=== PATIENT | male | born 1930 | race Caucasian/White ===

== ENCOUNTER 2016-09-20 06:24 | Day surgery (SDC) | payer MEDICARE, OTHER ==
--- NOTE | 2016-09-16 15:31 | PCM.ANEPRE ---
Anesthesia Pre-Op Review Reason for Review: [place] 09/29 COMORBIDITIES Anesthesia Recommendations: Proceed with Procedure Additional Comments 86 yo M with chronic renal failure scheduled for lap peritoneal dialysis catheter placement. Hx of IDDM, partial nephrectomy. Stop Bang 4. Echo shows EF 60-65%, no significant valvular disease. Patient's most recent potassium is 5.9, he has not yet started dialysis. Proceed, will check DOS basic metabolic panel. Jeff Serrano Chart Reviewed by: Russel Merritt MD September 16, 2016 15:31
[2016-09-20] VITALS (9 sets, daily range): BP systolic 127–170; BP diastolic 48–85; PULSE 57–71; RESP 13–20; O2SAT 95–100
[~2016-09-20] VITALS: Ht 182.9 cm; Wt 106.1 kg
[~2016-09-20 06:24] MED LIST: 0.9% Sodium Chloride 500 ML IV ONE; ACET-2605 PO; ALBU8.5H2 INHALATION; AMLO10TA3 PO; ASCO500C6 PO; ASPI-973 PO; CHOL500050 PO; CeFAZolin Inj 2 GM in IV Premix 1 EACH IV ONE; DOCU250C2 PO; DOXA2TAB52 PO; FERR325C PO; FINA5TAB9 PO; FUR20 PO; GLIM1TAB PO; HYG25 PO; INSU100V7 SUBQ; KEN25CR EXT; KTC2C15 TP; LOSA25TA21 PO; METR45GE TOP; PRAV40TA PO; SEVE800T7 PO; [UNRECOGNIZED DRUG - OTHER] TOPICAL; levothyroxine PO
[2016-09-20] MEDS ORDERED: Glycopyrrolate 0.2 MG/ML 1mL Inj ONE ×2 (06:25)
[2016-09-20] MEDS ORDERED: Propofol 10,000 mCg/mL 20 mL Inj ONE (06:25)
[2016-09-20] MEDS ORDERED: fentaNYL-PF 50 mCg/mL 2 mL Inj ONE (06:25)
[2016-09-20] MEDS ORDERED: Ondansetron 2 mg/mL 2 mL Inj ONE (06:25)
[2016-09-20] MEDS ORDERED: Neostigmine 1 mg/mL 10 mL Inj ONE (06:25)
[2016-09-20] MEDS ORDERED: Rocuronium 10 mg/mL 5 mL Inj ONE (06:25)
--- NOTE | 2016-09-20 07:49 | PCM.HPANE ---
Patient Data Surgeon Admitting Provider: Attending Provider:Daryn Henley MD Primary Care Physician:Siomara Kinsey MD Other Provider:Daphnie Aguilar Anesthesia Reason for Visit Chronic Renal Failure Stage 4 Ht/WT & BMI Height (Feet): 6 Height (Inches): 0 Weight (Kilograms): 106.14 Body Mass Index 31.00 Allergies Coded Allergies: No Known Allergies (Unverified , 09/16/16) Past Anesthesia History Anesthesia History: Denies:: Anesthesia Reactions, Malignant Hyperthermia Diabetes History Hx Diabetes?: Yes Type of Diabetes: Type II Glycemic Control: Insulin & Oral Medication Current Bedside Blood Glucose: 77 MRSA MRSA: No Medications Blood Thinner: Aspirin Hypertension Medication: Yes (AMLODIPINE,LASIX,LOSARTAN,CHLORTHALIDONE, DOXAZOSIN) Home Meds Incl Beta [place]: No Reported Medications Cholecalciferol (Vitamin D3) (Vitamin D)50,000 Unit Mywnjqo69,000 Unit PO Q 2 WEEKS 09/16/16 Doxazosin (Cardura)2 Mg Tablet2 Mg PO HS Ref 0 09/16/16 Chlorthalidone 25 Mg Quvpes54 Mg PO DAILY #30 TABLET 09/16/16 Sevelamer Carbonate (Renvela)800 Mg Tablet1,600 Mg PO TIDWM 90 Days 01/28/16 [levothyroxine] No Conflict Wszmb760 Mcg PO DAILY 01/28/16 Acetaminophen/Diphenhydramine (Tylenol Pm Ex-Strength Caplet)500 Mg-25 Mg Tablet1 Each PO Q6H PRN For Pain 01/26/16 Triamcinolone Acet (Triamcinolone Acetonide Cream)1 Applic/0.25 Gm Cr1 Applic EXT BID #60 GM Ref 0 01/26/16 Pravastatin 40 Mg Wcrzvo16 Mg PO DAILY Ref 0 01/26/16 [neutrogena shampoo] No Conflict Check1 Dose TOPICAL DAILY 01/26/16 Metronidazole (Metronidazole Gel)1 Applic/0.25 Gm Gel1 Applic TOP HS #45 GM Ref 0 01/26/16 Losartan Potassium 25 Mg Irrjfc57 Mg PO DAILY 01/26/16 Ketoconazole 15 Gm Cream..g.15 Gm TP BID PRN fungal infection 01/26/16 Ferrous Sulfate (Iron)325 Mg Capsule.er325 Mg PO DAILY 01/26/16 Insulin Glargine (Lantus U100 Insulin Vial)100 Unit/Ml Vial30 Unit SUBQ HS #1 VIAL Ref 0 01/26/16 Glimepiride 1 Mg Tablet0.5 Mg PO BID #30 TABLET Ref 0 01/26/16 Furosemide 20 Mg Tab20 Mg PO DAILY 30 Days Ref 0 01/26/16 Finasteride 5 Mg Tablet5 Mg PO DAILY 30 Days Ref 0 01/26/16 Doxazosin (Cardura)2 Mg Tablet2 Mg PO HS Ref 0 01/26/16 Docusate Sodium 250 Mg Akstadr296 Mg PO DAILY PRN For Constipation Ref 0 01/26/16 Aspirin 81 Mg Mkhmln18 Mg PO DAILY Ref 0 01/26/16 Ascorbic Acid (Vitamin C)500 Mg Capsule.er1,000 Mg PO DAILY 01/26/16 Amlodipine 10 Mg Smqwrl96 Mg PO DAILY Ref 0 01/26/16 Albuterol HFA (Proair HFA)8.5 Gm Hfa.aer.ad2 Puffs INHALATION Q4H #1 INHALER 01/26/16 Discontinued Reported Medications Hydrochlorothiazide 25 Mg Egdgfo51 Mg PO DAILY 30 Days Ref 0 01/28/16 Tramadol 50 Mg Mrofze88 Mg PO HS PRN For Pain Ref 0 01/26/16 Minocycline 50 Mg Kqzdqy90 Mg PO BID Ref 0 01/26/16 Multivitamin (Once Daily)1 Each Tablet1 Each PO DAILY 01/26/16 [free style strips] No Conflict Check1 Bid 01/26/16 Ergocalciferol (Vitamin D2) (Drisdol)50,000 Unit Nayhwpa59,000 Unit PO DIRECTED twice a week 01/26/16 History History of ENT Problems?: Yes HEENT History: Positive for:: Sinus Problem (ALLERGIC RHINITIS) Denture Type: None Teeth Condition: Within Normal Limits Hx of Heart Problems?: Yes Cardiovascular History: Positive for:: Hypertension (HYPERLIPIDEMIA) Thrombophlebitis (HX OF"BLOOD CLOTS") Denies:: Heart Murmur (ECHO 11/2015 EF 60-65%) Other Cardiac History: HX OF ANEMIA OF CHRONIC DISEASE 09/13/ H/H-9.2/29.6 C/OF BRUISING EASILY Hx of Respiratory Problem?: Yes Respiratory History: Positive for:: Asthma (REACTIVE AIRWAY DISEASE) Use of Inhalers / NEBS Denies:: Use of C-PAP Machine (SNORES) Hx Neurologic Problems?: Yes Other Neurological Pertinent: HX DIABETIC NEUROPATHY Hx of GI Problems?: No Hx of Problems?: Yes Genitourinary History: Denies:: HX of Hemodialysis (CHRONIC (STAGE 4) KIDNEY DISEASE/DIALYSIS ACCESS=CURRENT PROBLEM) Other Pertinent History: S/P LT PARTIAL NEPHRECTOMY Male Hx: Denies:: Prostate Problems Scrotal Mass Testicular Surgery Skin History: Positive for:: History Skin Disorders? 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,TKA'S X2) Osteoarthritis Hx Surgeries?: Yes (LT PARTIAL NEPHRECTOMY,JULES W/ REVISION, TKA'S X2) Hx Any Other Health Problems?: Yes Other History: Positive for:: Hospitalization Thyroid Disease Denies:: Cancer Endocrine Disease (C/OF COLD INTOLERANCE) Hx Diabetes: YesBedside Blood Glucose: 77 Hx Alcohol Use: Yes (OCCAS)Have You Smoked inLast 12 mo: NoApprox How Many Cigarettes/day: 1 PPD Stop/Bang S-Snoring: Do You Snore Loudly: Yes T-Tired: feel tired, fatigued: Yes O-Obsered: Observed not breath: No P-Blood Pressure: treated: Yes B- Body Mass Index > 35 kg/m2: No A- Age over 50: Yes N- Neck Large Circumference: Yes G- Gender Male: Yes FRAN Total Score: 6 FRAN Risk Assessment: High Risk, =/>3 Yes Risk Assessment Category Category 1A: Patient has history of documented sleep apnea, and HAS NOT received any narcotic, sedative or anesthesia administration during this stay. Category 1B: Patient has history of documented sleep apnea, and HAS received any narcotic , sedative or anesthesia administration during this stay Category 2: Patient has SUSPECTED Obstructive Sleep Apnea, and HAS received any narcotic , sedative or anesthesia administration during this stay. Category 3: Patient has SUSPECTED Obstructive Sleep Apnea and HAS NOT received narcotic, sedative or anesthesia administration during this stay. Category 4: Outpatient in Procedural Areas with known sleep apnea or who screen positive for High Risk via the STOP/BANG questionnaire. Exam Exam Vital Signs Vital Signs Date Time Temp Pulse Resp B/P Pulse Ox O2 Delivery O2 Flow Rate FiO2 09/20/16 07:14 36.4 57 16 128/56 96 Room Air General Appearance: Alert, Oriented X3, Cooperative, No Acute Distress HEENT/AIRWAY: MP 2, Neck Movement Lungs: Clear to Auscultation, Normal Air Movement Heart: Exam Unremarkable, Regular Rate/Rhythm, No Murmurs/Rubs/Gallops Meds/Labs/Diagnostics Bedside Blood Glucose: 77 Labs Test 09/20/16 06:55 Sodium Level 143mEq/L (134-144) Potassium Level 5.1mEq/L (3.5-5.2) Chloride Level 109mEq/L (97-108) Carbon Dioxide Level 17mmol/L (18-29) Blood Urea Nitrogen 87mg/dL (8-27) Creatinine 4.07mg/dL (0.76-1.27) Estimat Glomerular Filtration Rate 15mL/min (>59) Glucose Level 77mg/dL (60-99) Calcium Level 10.0mg/dL (8.5-10.1) Plan Impression Patient chart reviewed, patient interviewed and anesthestic plan with risks, benefits, and alternatives discussed, and informed consent obtained. NPO per Anesth. Guidelines: Yes ASA Physical Status: ASA3 Severe Disease Anesthetic Plan: GA Bene/Risks/Altern/Consents: Yes HP Complete Prior to Induction: Yes Demetrio Perez MD September 20, 2016 07:49
[2016-09-20] MEDS ORDERED: Bupivacaine-MPF 0.25%/EPI 30 mL Inj INFILTRATE ONE (08:58)
[2016-09-20] MEDS ORDERED: Lactated Ringer's 500 ML IV PRN (09:18)
[2016-09-20] MEDS ORDERED: Lactated Ringer's 1,000 ML IV SCH (09:18)
[2016-09-20] MEDS ORDERED: EPHEDrine Sulfate 50 mg/mL Inj IVPUSH PRN (09:20)
[2016-09-20] MEDS ORDERED: Dexamethasone 4 mg/mL Inj IVPUSH PRN (09:20)
[2016-09-20] MEDS ORDERED: HYDROmorphone 1 mg/mL Inj IVPUSH PRN (09:20)
[2016-09-20] MEDS ORDERED: MetoCLOpramide 5 mg/mL 2 mL Inj IVPUSH PRN (09:20)
[2016-09-20] MEDS ORDERED: Ondansetron 2 mg/mL 2 mL Inj IVPUSH PRN (09:20)
[2016-09-20] MEDS ORDERED: Atropine 0.4 mg/mL Inj IVPUSH PRN (09:20)
[2016-09-20] MEDS ORDERED: fentaNYL-PF 50 mCg/mL 2 mL Inj IVPUSH PRN (09:20)
[2016-09-20] MEDS ORDERED: Phenylephrine 10,000 mCg/mL Inj IVPUSH PRN (09:20)
[2016-09-20] MEDS ORDERED: HYDROcodone-APAP 5-325 mg Tablet PO PRN (09:30)
--- NOTE | 2016-09-20 10:03 | OP ---
[address] [address] OPERATIVE REPORT PATIENT: QUITA WIN : 1930 MR#: [id number] ADMIT: 09/20/2016 JOB ID: [id number] DATE OF SURGERY: 09/20/2016 PREOPERATIVE DIAGNOSIS(ES): Chronic renal failure. POSTOPERATIVE DIAGNOSIS(ES): Chronic renal failure. PROCEDURE: 1. Diagnostic laparoscopy. 2. Laparoscopic placement of peritoneal dialysis catheter. SURGEON: Daryn Henley MD. ELECTROMECHANISMS DESIGN DRAFTER: Essie Negro PA-C. INDICATIONS: The patient is an 86-year-old man with chronic renal failure. He wants to do peritoneal dialysis. He has had a previous partial left nephrectomy through a left subcostal incision, but after discussing options with the patient, it was elected to proceed with diagnostic laparoscopy and then placement of a peritoneal dialysis catheter. FINDINGS: He did have adhesions tracking underneath his subcostal incision on the left, but they did not impair function of the catheter. The catheter had no restriction to inflow or outflow and was positioned into the center of the pelvis. There is no evidence of hernias. There is no evidence of malignancy. DESCRIPTION OF PROCEDURE: At the beginning and end of the operation, the SCOAP checklist was completed. A general endotracheal anesthetic was induced and using ChloraPrep, he was prepped and draped in the usual fashion. He had on pneumatic hose. He received intravenous antibiotics. All trocar sites were infiltrated with 0.25% bupivacaine with epinephrine. A left subcostal incision was made. The Veress needle was atraumatically placed into the abdominal cavity which was insufflated without restriction of flow. Using an optical port, a 5 mm port was established at the same site. There was a veil of omentum, but there was a clear space that I could pass the scope through. And then under direct visualization could visualize the rest of the abdominal cavity with results as stated above. A 5 mm port was placed in the left lateral mid abdomen. The position of the right upper quadrant incision, the internal location of the deep Jose cuff and then the right upper quadrant exit site were established. The short right upper quadrant incision was made. The rectus fascia identified. A small incision was made in the rectus fascia. Using a spinal needle, the location for the internal cuff was localized and then an 8-Bah[place]i trocar was then placed through the right upper quadrant incision entering precisely at the location of the internal cuff. The catheter was then positioned in the pelvis again with the internal cuff just outside of the peritoneum. It was then brought out through the previously chosen right upper quadrant exit site through a subcutaneous tunnel. Using normal saline, the catheter was tested. There was no restriction inflow or outflow. The catheter was then flushed with heparinized saline and clamped. The abdomen was reinflated. There was a small amount of residual saline that was aspirated. The abdomen was deflated. The trocars were removed without evidence of bleeding. Skin incisions were closed with subcuticular 4-0 Vicryl. Steri-Strips, Band-Aids, and a sterile dressing was applied. The estimated blood loss less was than 10 cc. There were no apparent complications. The final sponge, needle and instrument counts were announced as correct. The patient returned to the recovery room in stable condition. Critical assistance was provided by Essie Negro PA-C driving the scope for this procedure.
[2016-09-20 10:10] LABS: APPEARANCE,URINE HAZY (CLEAR,HAZY); COLOR,URINE STRAW (YELLOW); OCCULT BLOOD,URINE MODERATE (NEGATIVE); PH,URINE 5.5 (5.0-8.0); UROBILINOGEN,URINE NORMAL (NORMAL)
--- NOTE | 2016-09-20 10:18 | PCM.ANEP1 ---
Post Anesthesia PACU Phase 1 Assessment Vital Signs Vital Signs Date Time Temp Pulse Resp B/P Pulse Ox O2 Delivery O2 Flow Rate FiO2 09/20/16 10:05 62 19 152/48 95 Room Air 09/20/16 10:00 63 13 156/58 95 Room Air 09/20/16 09:56 68 20 159/51 95 Room Air 09/20/16 09:51 69 15 156/56 99 Room Air 09/20/16 09:45 70 15 170/55 100 Simple Mask 10 09/20/16 09:41 36.5 71 15 153/85 100 Simple Mask 10 09/20/16 07:14 36.4 57 16 128/56 96 Room Air Anesthetic Administered: GA Level of Alertness: Awake, talking NAGY's with Equal Strength: Yes Pain: No Nausea or Vomiting: No CV Function & Hydration Stable: Yes Airway Device: Endotrachial Tube Oxygen Delivery: Simple Mask Lungs: Clear to Auscultation, Normal Air Movement Dermatome Level: Full Sensation PACU Phase 2 Assessment Complications: No Follow up Care: N/A Patient Instructions Provided: Yes Demetrio Perez MD September 20, 2016 10:18
== END 2016-09-20 23:59 | disposition home or self-care (01) ==
LOC: SAS 06:24
PROVIDERS: ATTEND Surgery
DX: I12.9 Hypertensive chronic kidney disease with stage 1 through stage 4 chronic kidney disease, or unspecified chronic kidney disease (principal); N18.4 Chronic kidney disease, stage 4 (severe); E11.22 Type 2 diabetes mellitus with diabetic chronic kidney disease; N25.81 Secondary hyperparathyroidism of renal origin; E78.5 Hyperlipidemia, unspecified; J45.909 Unspecified asthma, uncomplicated; Z90.5 Acquired absence of kidney; Z86.711 Personal history of pulmonary embolism; Z79.84 Long term (current) use of oral hypoglycemic drugs; Z79.4 Long term (current) use of insulin; Z79.82 Long term (current) use of aspirin; Z96.653 Presence of artificial knee joint, bilateral; Z87.891 Personal history of nicotine dependence
CPT/HCPCS: 36415; 49324; 80048; 81000; 87086; 87088; J0690; J2250; J2405; J2710; J3010; J7040